=== PATIENT | female | born 1970 | race Asian ===

== ENCOUNTER 2023-11-08 06:58 | Outpatient (CLI) | payer OTHER ==
[2023-11-08 07:54] LABS: BASOPHILS # (AUTO) 0.1 K/uL (0.00-0.22); BASOPHILS % (AUTO) 1.7 % (0.0-2.0); EOSINOPHILS # (AUTO) 0.3 K/uL (0-0.4); EOSINOPHILS % (AUTO) 5.4 % (0.0-4.0); HEMATOCRIT 40.9 % (36-48); HEMOGLOBIN 13.6 g/dL (12.0-16.0); LYMPHOCYTES % (AUTO) 32.6 % (20.5-51.1); MEAN CORPUSCULAR HEMOGLOBIN 28 pg (27-31); MEAN CORPUSCULAR HGB CONC 33 g/dL (33-37); MONOCYTES # (AUTO) 0.5 K/uL (0.8-1.0); MONOCYTES % (AUTO) 7.5 % (1.7-9.3); NEUTROPHILS # (AUTO) 3.2 K/uL (1.8-7.7); NEUTROPHILS % (AUTO) 52.8 % (42.2-75.2); PLATELET COUNT (AUTO) 287 K/uL (140-450); RED BLOOD CELL COUNT(AUTO) 4.82 MIL/uL (4.20-5.40); RED CELL DISTRIBUTION WIDTH 13.8 % (11.6-13.7); WHITE BLOOD COUNT (AUTO) 6.1 K/uL (4.8-10.8)
[2023-11-08 08:25] LABS: ALBUMIN 3.9 g/dL (3.4-5.0); ANION GAP 9.7 (8-16); CALCIUM 9.3 mg/dL (8.5-10.1); CARBON DIOXIDE 30.2 mmol/L (21-32); CHOL/HDL RATIO 3.6 (1-4.5); CREATININE 0.8 mg/dL (0.6-1.3); POTASSIUM 3.9 mmol/L (3.5-5.1); THYROID STIMULATING HORMONE 1.68 uIU/mL (0.34-3.74); TOTAL BILIRUBIN 0.5 mg/dL (0.0-1.0); TOTAL PROTEIN, SERUM 7.3 g/dL (6.4-8.2)
[2023-11-09 08:08] LABS: T4 (THYROXINE) 10.5 ug/dL (4.5-12.0); VITAMIN D, 25-HYDROXY 31.3 ng/mL (30.0-100.0)
[2023-11-09 10:54] LABS: HEMOGLOBIN A1C 5.9 % (4.8-5.6)
== END 2023-11-08 20:20 | disposition home or self-care (01) ==
LOC: MLB 06:58
DX: Z12.39 Encounter for other screening for malignant neoplasm of breast (principal); Z01.89 Encounter for other specified special examinations; R92.30 Dense breasts, unspecified
CPT/HCPCS: 36415; 76641; 80053; 82306; 83036; 84436; 84443; 85025